=== PATIENT | female | born 1995 | race Caucasian/White ===

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

== ENCOUNTER 2017-03-29 21:01 | Emergency (ER) | payer OTHER ==
[~2017-03-29] VITALS: Ht 149.9 cm; Wt 77.3 kg
[2017-03-29] MEDS ORDERED: IBUPROFEN 800 MG TABLET PO ONE (22:15)
[2017-03-29] MEDS ORDERED: CEPHALEXIN MONOHYDRATE 500 MG CAPSULE PO ONE (22:15)
[2017-03-29] MEDS ORDERED: SULFAMETHOX/TRIMETH DS 800-160 MG/TABLET PO ONE (22:15)
[2017-03-29 22:41] VITALS: BP 138/89
== END 2017-03-29 22:42 | disposition home or self-care (01) ==
LOC: EMS 21:03
DX: L02.416 Cutaneous abscess of left lower limb (principal)
CPT/HCPCS: 99284

== ENCOUNTER 2018-05-14 22:28 | Emergency (ER) | payer OTHER ==
[~2018-05-14] VITALS: Ht 149.9 cm; Wt 77.3 kg
[2018-05-15] MEDS ORDERED: PENICILLIN V POTASSIUM 500 MG TABLET PO ONE (00:15)
[2018-05-15 00:25] VITALS: BP 127/61
== END 2018-05-15 00:45 | disposition home or self-care (01) ==
LOC: EMS 22:28
DX: J02.0 Streptococcal pharyngitis (principal)
CPT/HCPCS: 87430

== ENCOUNTER 2018-05-25 22:03 | Emergency (ER) | payer OTHER ==
[~2018-05-25] VITALS: Ht 149.9 cm; Wt 75.0 kg
[2018-05-25 22:50] LABS: APPEARANCE,URINE CLOUDY (CLEAR); BILIRUBIN,URINE NEGATIVE (NEGATIVE); GLUCOSE, URINE (UA) NEGATIVE (NEGATIVE); KETONES,URINE NEGATIVE (NEGATIVE); LEUKOCYTE ESTERASE ,URINE NEGATIVE (NEGATIVE); NITRATE,URINE NEGATIVE (NEGATIVE); OCCULT BLOOD,URINE NEGATIVE (NEGATIVE); PROTEIN,URINE NEGATIVE (NEGATIVE)
[2018-05-25 23:53] LABS: BASOPHILS % (AUTO) 0.6 % (0.0-2.0); EOSINOPHILS % (AUTO) 0.6 % (1.0-6.0); HEMATOCRIT 37.2 % (36-46); HEMOGLOBIN 12.5 g/dL (12.0-16.0); LYMPHOCYTES # (AUTO) 4.3 K/uL (1.0-4.8); LYMPHOCYTES % (AUTO) 32.1 % (22.0-44.0); MEAN CORPUSCULAR HEMOGLOBIN 29.3 pg (26.0-34.0); MEAN CORPUSCULAR HGB CONC 33.6 G/dL (31.0-37.0); MEAN CORPUSCULAR VOLUME 87 fL (80-100); MONOCYTES # (AUTO) 0.9 K/uL (0.1-1.0); MONOCYTES % (AUTO) 6.5 % (2.0-9.0); NEUTROPHILS % (AUTO) 60.2 % (40.0-70.0); PLATELET COUNT (AUTO) 278 K/uL (150-450); RED BLOOD CELL COUNT(AUTO) 4.27 MIL/uL (4.00-5.20); RED CELL DISTRIBUTION WIDTH 12.3 % (11.5-14.5)
[2018-05-25 23:59] LABS: ANION GAP 6 mmol/L (8-16); CALCIUM, TOTAL 8.3 mg/dL (8.8-10.5); CARBON DIOXIDE 29 mmol/L (22-29); CHLORIDE 103 mmol/L (98-107); CREATININE 0.71 mg/dL (0.60-1.30); GLOMERULAR FILTR. RATE CALC > 60 mL/min (>60); GLUCOSE,RANDOM 89 mg/dL (70-110); POTASSIUM 3.6 mmol/L (3.5-5.1); SODIUM SERUM 138 mmol/L (136-145); UREA NITROGEN, BLOOD 12 mg/dL (7-18)
[2018-05-26 00:05] LABS: ALANINE AMINOTRANSFERASE 52 U/L (12-78); ALBUMIN 3.8 g/dL (3.4-5.0); ALKALINE PHOSPHATASE 66 U/L (46-116); ASPARTATE AMINOTRANSFERASE 27 U/L (15-37); BILIRUBIN,TOTAL 0.3 mg/dL (0.1-1.0); TOTAL PROTEIN, SERUM 8.9 g/dL (6.4-8.2)
[2018-05-26] MEDS ORDERED: AMOX TR/POT CLAV 875 MG/125 MG TABLET PO ONE (00:45)
[2018-05-26 01:45] VITALS: BP 131/53
== END 2018-05-26 02:07 | disposition home or self-care (01) ==
LOC: EMS 22:04
DX: L03.316 Cellulitis of umbilicus (principal)
CPT/HCPCS: 76830; 76856

== ENCOUNTER 2019-08-26 08:05 | Emergency (ER) | payer OTHER ==
[~2019-08-26] VITALS: Ht 152.4 cm; Wt 90.9 kg
[2019-08-26 10:09] LABS: APPEARANCE,URINE CLEAR (CLEAR); BILIRUBIN,URINE NEGATIVE (NEGATIVE); GLUCOSE, URINE (UA) NEGATIVE (NEGATIVE); KETONES,URINE NEGATIVE (NEGATIVE); LEUKOCYTE ESTERASE ,URINE NEGATIVE (NEGATIVE); NITRATE,URINE NEGATIVE (NEGATIVE); OCCULT BLOOD,URINE NEGATIVE (NEGATIVE); PH,URINE 5.5 (5.0-8.0); PROTEIN,URINE NEGATIVE (NEGATIVE); UROBILINOGEN,URINE 0.2 mg/dL (<=1.0)
[2019-08-26 10:30] VITALS: BP 113/60
== END 2019-08-26 10:42 | disposition home or self-care (01) ==
LOC: EMS 08:06
DX: R11.2 Nausea with vomiting, unspecified (principal); R05 Cough; R09.81 Nasal congestion